=== PATIENT | male | born 1965 | race Caucasian/White ===

== ENCOUNTER 2021-08-04 18:41 | Emergency (ER) | payer OTHER, SELFPAY ==
[2021-08-04 18:52] VITALS: BP 127/79; PULSE 73; RESP 20; TEMP 36.8; O2SAT 98
--- NOTE | 2021-08-04 19:15 | ED.URI ---
HPI - URI/Sore Throat General Chief Complaint: Upper Respiratory Infection Stated Complaint: runny nose,headache Time Seen by Provider: 08/04/21 19:16 Source: patient, RN notes reviewed and old records reviewed Mode of arrival: ambulatory Limitations: no limitations History of Present Illness HPI Narrative: 55 year old male who presents to [facility] care with 2 week history of sinus congestion and drainage, headache, facial pressure and his teeth even hurt and also fatigue. He states that he has tried many OTC sinus medications and decongestants with no improvement in his symptoms. He does have history of asthma but has not had any acute cough or any shortness of breath or wheezing. He states that he has history of sinus problems in the past and has had sinus infections previously. Patient reports that his sinus drainage has been greenish, yellowish and also it has been bloody. MD elicited complaint: rhinorrhea, nasal congestion, sinus pain and other (headache) Pertinent past history: sinusitis and asthma Onset (ago): week(s) (2) Related Data Home Medications Medication Instructions Recorded Confirmed albuterol sulfate 90 mcg/actuation 1 inh inhalation DIRECTED 08/04/21 08/04/21 aerosol inhaler Allergies Allergy/AdvReac Type Severity Reaction Status Date / Time No Known Allergies Allergy Verified 08/04/21 19:03 Review of Systems Review of Systems: CONSTITUTIONAL: Denies known fever, chills, or sweats. EYES: Denies visual changes, redness, or discharge. ENT: Positive for rhinorrhea, congestion, sore throat, no otalgia. CARDIOVASCULAR: Denies chest pain, palpitations, or edema. RESPIRATORY: Positive for cough denies dyspnea. GASTROINTESTINAL: Denies abdominal pain, nausea, vomiting, or diarrhea. GENITOURINARY: Denies dysuria or hematuria. SKIN: Denies rash or itching. MUSCULOSKELETAL: Denies back pain, joint pain, or myalgia. NEUROLOGIC: Positive for headache, numbness, or weakness, fatigue. PSYCHIATRIC: Denies anxiety or depression. [facility] Past Medical History Medical History (Updated 08/05/21 @ 11:55 by Kenna Roldan NP) Acid reflux Asthma Elevated cholesterol Sinusitis Surgical History Surgical History (Updated 08/04/21 @ 19:18 by Kenna Roldan NP) History of hernia repair Social History Social History (Updated 08/05/21 @ 11:55 by ROSARIO Mayes Smoking status: Never smoker Alcohol intake: current Alcohol use details: social Substance use: never Living arrangements: with family Gender identity (if verbalized by the patient): Male Comments At time of signature, agree with nursing past medical, surgical, social and family history. There is no relevant family history pertinent to the presenting complaint Exam Narrative: GENERAL: Illl-appearing, well-nourished, and in no acute distress. HEAD: Normocephalic, atraumatic. EYES: PERRLA and EOMI. ENT: Nares red and membranes swollen, copious yellow to white rhinorrhea no epistaxis. Mucous membranes moist.TM's normal with dull light reflex, throat red with no lesionsor exudates or tonsil swelling post nasal drainage noted NECK: Supple. no lymphadenopathy CHEST: Clear to auscultation. No respiratory distress.some cough with no wheezing or shortenss of breath, SAO2 98% on room air. HEART: Regular rate and rhythm. No murmur heard. Normal peripheral pulses. ABDOMEN: Soft, nontender, nondistended, normal active bowel sounds. EXTREMITIES: Normal range of motion. No edema SKIN: Warm, dry, no rash. NEURO: No focal deficits. Alert and oriented x3. Course Course Level of Care: Express Care Visit Vital Signs Vital signs: Vital Signs Temperature 36.8 C 08/04/21 18:52 Pulse Rate 73 08/04/21 18:52 Respiratory Rate 20 08/04/21 18:52 Blood Pressure 127/79 08/04/21 18:52 Pulse Oximetry 98 08/04/21 18:52 Oxygen Delivery Room Air 08/04/21 18:52 Temperature 36.8 C 08/04/21 18:52 Pulse Rate 73 08/04/21 18:5
== END 2021-08-04 19:35 | disposition home or self-care (01) ==
PROVIDERS: Emergency Provider Registered Nurse
DX: J32.9 Chronic sinusitis, unspecified (principal); K21.9 Gastro-esophageal reflux disease without esophagitis; J45.909 Unspecified asthma, uncomplicated; E78.00 Pure hypercholesterolemia, unspecified
CPT/HCPCS: 99213; G0463

== ENCOUNTER 2021-10-14 17:11 | Emergency (ER) | payer OTHER, SELFPAY ==
[2021-10-14 17:20] VITALS: BP 131/83; PULSE 98; RESP 18; TEMP 37.4; O2SAT 100
--- NOTE | 2021-10-14 17:24 | ED.SKABFB ---
HPI - Skin/Abscess/Foreign Bdy General Chief complaint: Skin/Abscess/Foreign Body Stated complaint: Insect Bite Buttocks Time Seen by Provider: 10/14/21 17:24 History of Present Illness HPI narrative: Linus Rivera is a 55 yo male with PMH of asthma, GERD, [facility] complaints of a spider bite on left buttock that he thinks occurred for 5 days ago. He has a white streak and swelling at the site. Pt states pain/swelling has increased in last day Related Data Home Medications Medication Instructions Recorded Confirmed albuterol sulfate 90 mcg/actuation 2 puff inhalation PRN PRN 10/14/21 10/14/21 aerosol inhaler Shortness Of Breath Or Wheezing omeprazole 40 mg capsule,delayed 40 mg PO DAILY 10/14/21 10/14/21 release Allergies Allergy/AdvReac Type Severity Reaction Status Date / Time No Known Allergies Allergy Verified 10/14/21 17:19 Review of Systems Review of Systems: CONSTITUTIONAL: Denies fever, chills, sweats. EYES: Denies visual changes, redness, discharge. ENT: Denies rhinorrhea, congestion, sore throat, otalgia. CARDIOVASCULAR: Denies chest pain, palpitations, edema. RESPIRATORY: Denies dyspnea, wheezing, cough GASTROINTESTINAL: Denies abdominal pain, nausea, vomiting, diarrhea. GENITOURINARY: Denies dysuria, hematuria, abnormal discharge. Developing abscess on left buttock SKIN: Denies rash or itching. NEUROLOGIC: Denies numbness, or focal weakness. PSYCHIATRIC: Denies anxiety or depression. [facility] Past Medical History Medical History Acid reflux Asthma Elevated cholesterol Sinusitis Surgical History Surgical History History of hernia repair Social History Social History Smoking status: Never smoker Alcohol intake: current Alcohol use details: social Substance use: never Gender identity (if verbalized by the patient): Male Comments At time of signature, I agree with nursing past medical, surgical, social and family history. There is no relevant family history pertinent to the presenting complaint. Exam Narrative: GENERAL: This is a well-nourished, well-developed patient, in mild distress. HEAD: normocephalic, atraumatic. EYES: Sclera clear/white. Vision is grossly intact. EARS: External ears normal,. Hearing grossly intact. NOSE: External nose normal without nasal discharge, nares without redness, no rhinorrhea. THROAT: Mucous membranes moist, NECK: Neck supple, CARDIOVASCULAR: Regular rate and rhythm without murmurs, gallops, or rubs. RESPIRATORY: Clear to auscultation. Breath sounds equal bilaterally. No wheezes, rales, or rhonchi. GASTROINTESTINAL: Not done, SKIN: warm, intact with developing abscess on left buttock, 4 x 1-1/2, skin is indurated but not fluctuant NEURO: awake, alert, and oriented to person, place and time. There were no obvious focal neurologic abnormalities. Steady gait EXTREMITIES: Normal range of motion. BACK: Nontender without deformity Course Course Emergency Course: Patient comes with suspected spider bite on left buttock Appears to be developing abscess on left bottom buttock on medial side Attempt at I&D was blood only; is not fluctuant Instructed patient to use warm soaks to buttock 2 times a day minimum and to take antibiotics prescribed Bactrim and Keflex Level of Care: Express Care Visit Vital Signs Vital signs: Vital Signs Temperature 99.4 F 10/14/21 17:20 Pulse Rate 98 10/14/21 17:20 Respiratory Rate 18 10/14/21 17:20 Blood Pressure 131/83 10/14/21 17:20 Pulse Oximetry 100 10/14/21 17:20 Oxygen Delivery Room Air 10/14/21 17:20 Temperature 99.4 F 10/14/21 17:20 Pulse Rate 98 10/14/21 17:20 Respiratory Rate 18 10/14/21 17:20 Blood Pressure 131/83 10/14/21 17:20 Pulse Oximetry 100 10/14/21 17:20 Oxygen [facility]
== END 2021-10-14 17:50 | disposition home or self-care (01) ==
PROVIDERS: Emergency Provider Nurse Practitioner
DX: L02.31 Cutaneous abscess of buttock (principal); K21.9 Gastro-esophageal reflux disease without esophagitis; J45.909 Unspecified asthma, uncomplicated; E78.00 Pure hypercholesterolemia, unspecified
CPT/HCPCS: 10160; 99213; G0463